=== PATIENT | female | born 1970 | race African-American/Black ===

== ENCOUNTER 2016-12-20 09:45 | Emergency (ER) | payer OTHER ==
[2016-12-20 09:58] VITALS: BP 154/72; PULSE 80; TEMP 98.5; BMI 33.9
[2016-12-20] MEDS ORDERED: LORATADINE 10 MG TABLET PO ONE (10:34)
[2016-12-20] MEDS ORDERED: LORATADINE 10 MG TABLET ONE (10:41)
--- NOTE | 2016-12-20 10:42 | PDOC ---
History of Present Illness - General Chief Complaint: Bite Stated Complaint: BITE (BED BUGS) Time Seen by Provider: 12/20/16 10:29 History Source: Patient Exam Limitations: No Limitations - History of Present Illness Initial Comments: 12/20/16 10:35 CHIEF COMPLAINT: Allergic reaction to bug bite HISTORY OF PRESENT ILLNESS: Patient is an otherwise healthy 46 year old female, staying at [facility] sustained multiple bedbug bites to face lateral torso and right leg. The bites are no linear pattern yesterday she woke up with swelling to right upper eyelid. Patient denies any fever. Swelling is improved today to upper eyelid patient states that her job wanted her to come in for evaluation due to swelling and to have a documented. 12/20/16 10:58 Timing/Duration: reports: yesterday Severity: Yes: moderate Location: reports: face Respiratory Risk Factors: reports: insect bite Past History - Past Medical History Allergies/Adverse Reactions: Allergies Allergy/AdvReac Type Severity Reaction Status Date / Time No Known Allergies Allergy Verified 12/20/16 09:55 Home Medications: Ambulatory Orders Loratadine [Claritin] 10 mg PO DAILY #30 tablet 12/20/16 Metoprolol Tartrate 25 mg PO ASDIR 12/20/16 HTN: Yes Thyroid Disease: Yes (HYPER) - Psycho/Social/Smoking Cessation Hx Suicidal Ideation: No Smoking History: Never smoked Review of Systems - Review of Systems Constitutional: No: Symptoms Reported HEENTM: No: Symptoms Reported Respiratory: No: Symptoms reported Cardiac (ROS): No: Symptoms Reported ABD/GI: No: Symptoms Reported : No: Symptoms Reported Musculoskeletal: No: Symptoms Reported Integumentary: Yes: Lesions, Pruritus Neurological: No: Symptoms reported, Paresthesia, Tingling, Tremors Hematologic/Lymphatic: No: Symptoms Reported All Other Systems: Reviewed and Negative *Physical Exam - Vital Signs Last Vital Signs Temp Pulse Resp BP Pulse Ox 98.5 F 80 19 154/72 99 12/20/16 09:55 12/20/16 09:55 12/20/16 09:55 12/20/16 09:55 12/20/16 09:55 - Physical Exam General Appearance: Yes: Appropriately Dressed. No: Apparent Distress Neck: negative: Tender lateral, Tender midline Respiratory/Chest: positive: Lungs Clear, Normal Breath Sounds. negative: Respiratory Distress, Accessory Muscle Use Cardiovascular: positive: Regular Rhythm, Regular Rate Lymphatic: negative: Adenopathy Extremity: positive: Erythema Integumentary: positive: Erythema, Rash (multiple papular erythematous raised non-umbilicated lesions to right lateral face, right torso, right leg. Surrounding erythema with no evidence of cellulitis, swelling to right upper eyelid. ), Swelling Neurologic: positive: Alert, Normal Mood/Affect Medical Decision Making - Medical Decision Making 12/20/16 10:43 A/P: Patient with erythematous raised lesions to the right upper eyelid, localized erythema. Findings consistent with bedbug bites, bites or in a linear pattern. We'll give patient Claritin due to localized reaction to bug bites. May apply Benadryl Gel sparing the eye, ice packs to eye. She verbalized understanding and will follow-up if any increased redness swelling or signs of infection including fever. 12/20/16 11:02 *DC/Admit/Observation/Transfer Diagnosis at time of Disposition: Bug bite of face without infection Qualifiers: Encounter type: initial encounter Qualified Code(s): S00.86XA - Insect bite ( nonvenomous) of other part of head, initial encounter - Discharge Dispostion Admit: No - Prescriptions Prescriptions: Loratadine [Claritin] 10 mg PO DAILY #30 tablet - Patient Instructions Printed Discharge Instructions: DI for Insect Bites and Stings Additional Instructions: Please monitor area for any increased redness, swelling or signs of infection. If any fever, increased swelling or signs of infection return to the ER. Claritin daily. Topical benadryl gel - Post Discharge Activity Work/School Note: Back to Work
== END 2016-12-20 10:59 | disposition home or self-care (01) ==
LOC: JERFT 09:45
DX: S30.861A Insect bite (nonvenomous) of abdominal wall, initial encounter (principal); W57.XXXA Bitten or stung by nonvenomous insect and other nonvenomous arthropods, initial encounter; Y93.89 Activity, other specified; Y92.59 Other trade areas as the place of occurrence of the external cause; Y99.8 Other external cause status
CPT/HCPCS: 99281-25